=== PATIENT | female | born 1955 | race Caucasian/White ===

== ENCOUNTER 2021-01-30 09:49 | Inpatient (IN) ==
--- NOTE | 2021-01-02 14:26 | PAT Medication Instructions ---
Medication Instructions Date of Service January 02, 2021 Home Medications atorvastatin 10 mg PO HS fluticasone furoate-vilanterol [Breo Ellipta] 1 inh INHALATION QAM ibuprofen [Advil] 400 mg PO QAM levothyroxine 50 mcg PO QAM ASK your surgeon for instructions ibuprofen [Advil] 400 mg PO QAM Take morning of surgery With a small sip of water, OTHERWISE NOTHING TO EAT OR DRINK AFTER MIDNIGHT: fluticasone furoate-vilanterol [Breo Ellipta] 1 inh INHALATION QAM levothyroxine 50 mcg PO QAM Take evening before surgery atorvastatin 10 mg PO HS Other Notes If you have any questions please call us at [phone] or [phone] or [phone] or [phone]
--- NOTE | 2021-01-04 09:42 | Anesthesiology Consultation ---
Date of Service January 04, 2021 Assessment & Plan (1) Encounter for pre-operative examination: - Abnormal preop CXR: notes 1.8 cm nodular density along the left heart border > may be artifactual, and correlation with a chest CT is recommended for further assessment and to exclude underlying pulmonary lesion. Report forwarded to PCP. Awaiting response. - Per assessment on 01/04: Travel screen- Lives in [place]. Works at [employer]. Uses PPE/follows COVID precaution guidelines. No known COVID-19 positive contacts or current COVID-19 related symptoms. Patient scheduled to receive first COVID vaccine 01/04 (second vaccine scheduled for after surgery). Surgeon arranging preop COVID testing (scheduled 01/24). Patient states she does have to work after preop COVID testing but will continue to follow strict COVID precautions. Awaiting results. Chart Review Chart Review: Patient seen in Pre Admission Testing Teaching & Discussion Pre-Anesthesia Teaching/Discussion Notes: Instructed NPO after midnight before surgery,except medications with 15 cc of water. Medication instructions provided according to the PAT guidelines. History Surgery Operation Date: 01/30/21 07:00 Proposed Procedures p Left Total Hip Arthroplasty - Micky Sharma, Height/Weight Height: 5 ft 8 in Weight: 108 kg Allergies Allergy/AdvReac Type Severity Reaction Status Date / Time No Known Allergies Allergy Unverified 01/03/21 15:16 Medications Home Medications Medication Instructions Recorded Confirmed Last Taken atorvastatin 10 mg PO HS 12/20/20 12/20/20 Unknown fluticasone furoate-vilanterol 1 inh INHALATION QAM 12/20/20 12/20/20 Unknown [Breo Ellipta] ibuprofen [Advil] 400 mg PO QAM 12/20/20 12/20/20 Unknown levothyroxine 50 mcg PO QAM 12/20/20 12/20/20 Unknown bupropion HCl 150 mg PO QAM 01/04/21 01/04/21 Unknown Past Medical History Medical History Arthritis Asthma stable Hyperlipidemia Hypothyroidism Migraine hx Obesity Pulmonary embolism 1993, no etiology found, previous on coumadin (since d/c'd), no issues since Exercise / Class Metabolic Activity II 4-5 Yardwork/Stairs/Walk up hill (one flight of stairs (no cp, no sob)) Past Surgical History Surgical History History of cholecystectomy open (2019) History of tonsillectomy Thyroid goiter s/p excision Past Anesthesia History No Hx of Anesthesia Complications and No Family Hx of Anesthesia Complications History of PONV No Hx of PONV and No Hx of Motion Sickness Social History Smoking Status: Current every day smoker Smoking cigarettes per day: 10 cigs/day x 40 years Do You Dip or Chew Tobacco: No Hx Alcohol Use: No Hx Substance Use: No Review of Systems No snoring. Patient denies chest pain, shortness of breath, dyspnea on exertion, fever, chills, cough, wheezing, palpitations. Physical Exam Vital Signs VITALS BP 117/66 P 62 TEMP 98.3 SP02 96%RA RESP 18 PHYSICAL Full neck and c-spine range of motion. Full TMJ range of motion. TMD 3 finger breaths Mallampati Score 2 Dentition: intact Lungs: clear throughout to auscultation Cardiac: regular rate and rhythm, no murmurs noted Spine: normal Carotid arteries: negative bruit Extremities: no edema Testing Laboratory Results PT 9.5 Seconds (9.0-12.0) 01/04/21 10:08 INR 0.9 (0.9-1.1) 01/04/21 10:08 APTT 27.0 Seconds (21.0-31.0) 01/04/21 10:08 Urine Color Dark Yellow 01/04/21 10:08 Urine Appearance Clear (Clear) 01/04/21 10:08 Urine pH 5.0 (4.5-7.5) 01/04/21 10:08 Ur Specific [place] 1.030 (1.000-1.030) 01/04/21 10:08 Urine Protein Negative (Negative) 01/04/21 10:08 Urine Glucose (UA) Negative (Negative) 01/04/21 10:08 Urine Ketones Trace (Negative) H 01/04/21 10:08 Urine Nitrite Negative (Negative) 01/04/21 10:08 Ur Leukocyte Esterase Negative (Negative) 01/04/21 10:08 Blood Type A Positive 01/04/21 10:08 Antibody Screen NEGATIVE 01/04/21 10:08 12/19/20 WBC 7.64 H/H 15.0/46.6 PLATELETS 276 SODIUM 141 POTASSIUM 4.0 CHLORIDE 110 CO2 26 BUN 19.7 CREATININE 1.15 GLUCOSE 98 Electrocardiogram Date: 01/04/21 NSR at 62bpm. Rightward axis. unconfirmed report. Chest X-Ray Date: 01/04/21 FINDINGS: PA and lateral chest radiographs are obtained. No prior studies are available for comparison at the time of dictation. The cardiomediastinal silhouette is unremarkable noting atherosclerotic calcification of the thoracic aorta. Question a 1.8 cm nodular density along the left heart border. There is no airspace consolidation or pleural effusion. Mild scarring/atelectasis is seen at the lung bases. There is no pneumothorax. The skeletal structures are osteopenic. There are healed right-sided rib fractures. IMPRESSION: There is no acute cardiopulmonary abnormality. Question a 1.8 cm nodular density along the left heart border. This may be artifactual, and correlation with a chest CT is recommended for further assessment and to exclude underlying pulmonary lesion.
[2021-01-04 10:49] LABS: Appearance Urine Clear (Clear); Bilirubin Urine Negative (Negative); Blood Urine Negative (Negative); Color Urine Dark Yellow; Glucose Urine UA Negative (Negative); Ketones Urine Trace (Negative); Leukocyte Esterase Urine Negative (Negative); Nitrite Urine Negative (Negative); Protein Urine Negative (Negative); Urobilinogen Urine Negative (Negative)
--- NOTE | 2021-01-04 10:51 | XRay Report ---
TWO VIEW CHEST CLINICAL HISTORY: Preoperative examination. FINDINGS: PA and lateral chest radiographs are obtained. No prior studies are available for compariso n at the time of dictation. The cardiomediastinal silhouette is unremarkable noting atherosclerotic calcification of the thoracic aorta. Question a 1.8 cm nodular density along the left heart border. T here is no airspace consolidation or pleural effusion. Mild scarring/atelectasis is seen at the lung bases. There is no pneumothorax. The skeletal structures are osteopenic. There are healed right-sided rib fractures. IMPRESSION: 1. There is no acute cardiopulmonary abnormality. 2. Question a 1.8 cm nodular density along the left heart border. This may be artifactual, and correl ation with a chest CT is recommended for further assessment and to exclude underlying pulmonary lesio n. ACT 112: Negative or not required by law. Electronically signed by: Ernesto Beck M.D. 01/04/2021 10:50 AM
[2021-01-04 11:05] LABS: INR 0.9 (0.9-1.1); Prothrombin Time 9.5 Seconds (9.0-12.0)
--- NOTE | 2021-01-04 16:18 | Electrocardiogram Report ---
Test Reason : Blood Pressure : / mmHG Vent. Rate : 062 BPM Atrial Rate : 062 BPM P-R Int : 146 ms QRS Dur : 090 ms QT Int : 432 ms P-R-T Axes : 072 093 081 degrees QTc Int : 438 ms Normal sinus rhythm Rightward axis Borderline ECG No previous ECGs available Confirmed by Wilson Pink ([id number]) on 01/04/2021 4:18:25 PM Referred By: Micky Sharma Confirmed By:Wilson Pink
[2021-01-05 08:36] LABS: Estimated Average Glucose 126 mg/dl
--- NOTE | 2021-01-28 09:43 | History & Physical Report ---
Date of Service January 30, 2021 Assessment & Plan (1) Degenerative joint disease of left hip: I have indicated the patient for left total hip replacement. The risks, benefits and complications of surgery were explained to the patient which include but not limited to infection, acute blood loss, DVT/PE, injury to nerves, vessels, bone, soft tissue, arthrofibrosis, chronic pain, failure of the prosthesis, hip dislocation, leg length discrepancy, need for additional surgery, cardiac and pulmonary events and . The patient wished to proceed with surgery and informed consent was obtained at this time. We will plan for Lovenox post-operatively for DVT prophylaxis. Patient has hx for PE. Upon discharge the patient will be discharged home with home health services. Appropriate clearances by PCP were obtained. History of Present Illness Chief Complaint: Left hip pain/DJD Primary Care Provider: Esha Wilson MD The patient is a 65 year old female who presents with complaints of severe left hip pain and DJD. The patient has failed outpatient conservative treatments to this point which included NSAIDs, IA corticosteroid injection, HEP. The patient's pain and limited function have progressed to the point where they severely hinder their activities of daily living and they no longer tolerate exercise programs. They are requesting to proceed with total hip replacement surgery. Allergies Allergy/AdvReac Type Severity Reaction Status Date / Time No Known Allergies Allergy Unverified 01/30/21 10:20 Home Medications Medication Instructions Recorded Confirmed Type atorvastatin 10 mg PO HS 12/20/20 12/20/20 History fluticasone furoate-vilanterol 1 inh INHALATION QAM 12/20/20 12/20/20 History [Breo Ellipta] ibuprofen [Advil] 400 mg PO QAM 12/20/20 12/20/20 History levothyroxine 50 mcg PO QAM 12/20/20 12/20/20 History bupropion HCl 150 mg PO QAM 01/04/21 01/04/21 History Past Med/Surg History Medical History Arthritis Asthma stable Hyperlipidemia Hypothyroidism Migraine hx Obesity Pulmonary embolism 1993, no etiology found, previous on coumadin (since d/c'd), no issues since Surgical History History of cholecystectomy open (2019) History of tonsillectomy Thyroid goiter s/p excision Social History Smoking Status: Current every day smoker Cigarettes Per Day: 10 cigs/day x 40 years; Second Hand Exposure: Yes (BOYFRIEND MORIAH SMOKES); Do You Dip or Chew Tobacco: No; Hx Alcohol Use: No Hx Substance Use: No Preferred Language: Mauritanian Communication Ability: Effective Supervisor Cellars Required: No Beliefs That Will Affect Care: None Current Living Situation: Significant Other Other Information That Helps Us Care for You: No Feels Safe at Home: Yes Safety Concerns: Feels Safe At This Time Assistive Devices: Glasses Review of Systems Review of Systems: All systems reviewed & are unremarkable except as noted in HPI & below Constitutional: as per Subjective / HPI Physical Exam Physical Exam: LLE NVSI +EHL/FHL/TA/GS SILT grossly, +2 DP pulse, compartments soft NT, limited painful ROM of the hip, antalgic gait. Constitutional: WD/WN, vitals as above Eyes: PERRL, conjunctivae normal, anicteric sclerae ENMT: external ear and nose normal, oropharynx normal Neck: trachea midline, no thyromegaly Respiratory: normal respiratory effort, lungs clear to auscultation Cardiovascular: RRR, no murmur, no edema Gastrointestinal (Abdomen): normal bowel sounds, soft, nontender, no hepatosplenomegaly Musculoskeletal: no cyanosis or clubbing, extremities motor strength 5/5 Skin: no rashes, warm and dry Neurologic: patellar DTR's 2+ bilat, sensation intact Psychiatric: A+Ox3, euthymic affect Lymphatic: no cervical or axillary lymphadenopathy Results & Data Results & Data ([facility]) Diagnostic Findings Multiple views of the hip demonstrates severe DJD with complete loss of the joint space. +osteophytes, +sclerosis, +subchondral cysts. Pre Admission Testing Addendum Laboratory Results PT 9.5 Seconds (9.0-12.0) 01/04/21 10:08 INR 0.9 (0.9-1.1) 01/04/21 10:08 APTT 27.0 Seconds (21.0-31.0) 01/04/21 10:08 Hemoglobin A1c 6.0 % (4.5-5.6) H 01/04/21 10:08 Urine Color Dark Yellow 03/10/21 10:08 Urine Appearance Clear (Clear) 01/04/21 10:08 Urine pH 5.0 (4.5-7.5) 01/04/21 10:08 Ur Specific [place] 1.030 (1.000-1.030) 01/04/21 10:08 Urine Protein Negative (Negative) 01/04/21 10:08 Urine Glucose (UA) Negative (Negative) 01/04/21 10:08 Urine Ketones Trace (Negative) H 01/04/21 10:08 Urine Nitrite Negative (Negative) 01/04/21 10:08 Ur Leukocyte Esterase Negative (Negative) 01/04/21 10:08 Blood Type A Positive 01/04/21 10:08 Antibody Screen NEGATIVE 01/04/21 10:08
[~2021-01-30 09:49] MED LIST: ACETAMINOPHEN 500 MG TAB PO SCH; BUPIVACAINE 0.5 % 5 MG/1 ML PF 10ML VIAL ONE; CeleBREX 200 MG CAP PO SCH; FAMOTIDINE 20 MG TAB PO SCH; GABAPENTIN 600 MG DOSE PO SCH; LR 15ML/HR IV SCH; METOCLOPRAMIDE HCL 10 MG TABLET PO SCH; ROPIVACAINE 0.5% HCL/PF 150 MG, BUPIVACAINE 0.75% MPF 20 ML, EPINEPHrine 30MG/30ML (OR ... INSTIL SCH; ceFAZolin 2000MG 2,000 MG/15 ML SYR IV SCH; dexAMETHasone 4 MG TAB PO SCH; oxyCODONE HCL 10 MG TABCR (OxyCONTIN) PO SCH
--- NOTE | 2021-01-30 10:23 | History & Physical Bridge Note ---
Date of Service January 30, 2021 History & Physical Bridge Note I have examined the patient, reviewed the History & Physical and in the interval since the performance of the History & Physical I have noted the following changes of clinical significance: no changes noted
[2021-01-30] MEDS ORDERED: DEXAMETHASONE SOD INJ 4 MG/ML VIAL ONE (11:14)
[2021-01-30] MEDS ORDERED: PROPOFOL IV EMULSION 10 MG/ML 20 ML VIAL IV ONE ×4 (11:14→13:08)
[2021-01-30] MEDS ORDERED: LIDOCAINE HCL 2% 2 ML VIAL/AMP(20MG/ML) INFIL ONE (11:14)
[2021-01-30] MEDS ORDERED: ONDANSETRON INJ 2 MG/ML 2 ML VIAL ONE (11:14)
[2021-01-30] MEDS ORDERED: MIDAZOLAM HCL 1 MG/ML 2ML VIAL ONE ×2 (11:14→13:13)
[2021-01-30] MEDS ORDERED: ATROPINE SULFATE 0.1 MG/ML 10ML SYR IV PRN (11:19)
[2021-01-30] MEDS ORDERED: ONDANSETRON INJ 2 MG/ML 2 ML VIAL IV PRN ×2 (11:19→15:06)
[2021-01-30] MEDS ORDERED: HYDROmorphone INJ 1 MG/ML SYRINGE IV PRN (11:19)
[2021-01-30] MEDS ORDERED: ePHEDrine sulfate 50 MG/ML AMP IV PRN (11:19)
[2021-01-30] MEDS ORDERED: fentaNYL citrate 100 MCG/2 ML VIAL IV PRN (11:19)
[2021-01-30] MEDS ORDERED: ORTHO JOINT ANESTHETIC ONE (11:56)
[2021-01-30] MEDS ORDERED: BACITRACIN INJ 50,000 UNIT VIAL ONE (11:56)
--- NOTE | 2021-01-30 13:38 | Post Operative Brief Note ---
Immediate Post Op Note v1 Date of Surgery January 30, 2021 Pre & Post Diagnosis Operation Date: 01/30/21 11:40 Pre-Op Diagnosis: Osteoarthritis Hip Left Post-Op Diagnosis: Osteoarthritis Hip Left I identified the patient and participated in the time-out.: Yes Procedure Operation Date: 01/30/21 11:40 Actual Procedures p Left Total Hip Arthroplasty(Left) - Micky Sharma DO Surgeon Micky Sharma DO Flatbed Owner Operator Terry Vásquez Estimated Blood Loss 180 Findings Consistent with Post-Op Diagnosis Fluids See anesthesia report Specimens Femoral head Anesthesia Type Spinal MAC Complications none Disposition Disposition: Recovery Room Overlapping Procedure I was present for: the critical portions of procedure. I was immediately available: during the entire case. Back up surgeon: was not required during procedure.
--- NOTE | 2021-01-30 13:40 | Operative Report ---
Post Operative Report Pre & Post Diagnosis Operation Date: 01/30/21 11:40 Pre-Op Diagnosis: Osteoarthritis Hip Left Post-Op Diagnosis: Osteoarthritis Hip Left I identified the patient and participated in the time-out.: Yes Procedure Operation Date: 01/30/21 11:40 Actual Procedures p Left Total Hip Arthroplasty(Left) - Micky Sharma DO Surgeon Micky Sharma DO Temporary Office Assistant Terry Vásquez Estimated Blood Loss 180 Findings Consistent with Post-Op Diagnosis Fluids See anesthesia report Specimens Femoral head Anesthesia Type Spinal MAC Disposition Disposition: Recovery Room Indications The patient is a 65-year-old female who presents with severe progressive left hip DJD who has failed outpatient conservative treatments. I indicated the patient for a total hip replacement and the risks and benefits were explained in detail which included but not limited to infection, bleeding, blood clot, damage to surrounding bone, nerves, vessels, soft tissue, hip dislocation, failure of the prosthesis, leg length discrepancy, need for additional surgery and . The patient agreed to proceed with replacement of the hip and informed consent was obtained. Appropriate clearances were obtained. Description of Procedure COMPONENTS USED: Selena [employer] hip system: Acetabulum size 52 osteo-ti-G7, femur size 11 extended offset, femoral head 36-3.5, liner 52x36, acetabular screw 30 mm x 1. Following induction of adequate spinal anesthesia, the patient was transferred to the OR table and placed in lateral decubitus position with right hip down. The left hip was prepped and draped in the typical sterile fashion. A timeout was performed, patient identified and site jabari confirmed. Appropriate antibiotics were given. A standard posterolateral/Cole-Langenbeck incision was made. Subcutaneous tissue was sharply dissected. Electrocautery was utilized for hemostasis. The fascia was incised throughout the length of the wound and retracted with the Charnley retractor. The bursa was taken down and the short external rotators were identified. The piriformis was tagged with #1 Vicryl. The short external rotators and capsule were divided from the posterior aspect of the femur using electrocautery. The posterior capsule was tagged with #1 Vicryl. Both external rotators and posterior capsule were swept posterior and protected, along with protecting the sciatic nerve. The hip was dislocated by flexion and internally rotation in a controlled manner and exposure of the femoral neck was gained with an old-style Hohmann and a blunt cobra retractor. A femoral cutting guide was utilized for making the appropriate level femoral neck cut with reciprocating saw. The femoral head was removed, measured and reserved on the back table. Next, attention was turned to the acetabulum. A posterior and anterior offset retractor was placed to gain adequate exposure. Acetabular labrum as well as posterior capsule elements were removed using electrocautery and forceps. Fovea centralis was cleared of all soft tissue. Sequential reaming was performed starting at 44 mm and carried up to a 51 mm and decision was made to proceed with impaction of a 52 mm G7 Osteo-Ti cup. This was impacted and held using a single 30 mm acetabular screw. The trial acetabular liner was placed at this time. Next, attention was turned to the proximal femur where a Bovie and pickup was used to further clear short external rotators from their insertion on the femur. Box osteotome and canal finder was used to gain access to the femoral canal and the lateral reamer on power was used to further open the proximal lateral canal. Sequentially rasping was carried up to a 11 which gave good fit and fill of the proximal femur. A trial reduction was carried out with a extended offset femoral neck component a 36-3.5 mm femoral head. The trial reduction was stable in all degrees of rotation with no [id number] impingement. The hip was dislocated, trial components were removed and access to the acetabulum was re-established. The trial liner was removed and the cup was irrigated to ensure all debris was removed. The final acetabular liner was inserted and properly seated in the cup. Access to the femur was once more gained and the size 11 femoral stem with extended offset was impacted into position. The hip was once more assessed with the 36-3.5 mm femoral head. Stability was accessed and found to be excellent with equal leg lengths. The hip was dislocated for the last time and the final 36-3.5 femoral head was impacted in place and the hip was reduced. Range of motion was checked once again and found to be stable. A Betadine soak was performed. After 3 minutes, the hip was once more irrigated with copious sterile saline solution with bacitracin. The loc-incisional soft tissue was injected utilizing [place] ortho mix which includes a combination of Ropivicaine 0.5% 150mg, Bupivicaine 0.5%/Epinephrine 1:200,000 30ml, Toradol 30mg, Dexamethasone 4mg, Ketamine 10mg, Clonidine 100mcg and NSS 30ml Orthomix solution. The piriformis, external rotators and capsule were repaired to the greater trochanter through bone tunnels using #5 FiberWire. The fascia was closed using #1 Vicryl, subcutaneous tissue was closed using 2-0 Vicryl, and skin was closed with bria and a sterile dry dressing was applied which inc luded godfrey incisional VAC. The patient tolerated the procedure well and was transported to PACU in stable condition. Due to the complex nature of the procedure, the entire surgery was performed with the operational assistance of Terry Vásquez PA-C. The pediatric dental assistant, under direct supervision, was involved in the actual performance of all aspects of the surgical procedure including patient positioning, hemostasis, tissue retraction, instrument management and wound closure. I attest to the content of the Intraoperative Record and any orders documented therein. Any exceptions are noted below.
--- NOTE | 2021-01-30 14:37 | Anesthesiology Progress Note ---
Date of Service January 30, 2021 Anesthesia Post Procedure Vital Signs Vital Signs: Temp Pulse Pulse Resp BP BP Pulse Ox 01/30/21 14:30 58 L 18 106/66 95 01/30/21 14:20 56 L 14 102/59 L 98 01/30/21 14:10 57 L 17 103/55 L 96 01/30/21 14:04 36.9 C 67 16 112/48 L 97 01/30/21 10:33 36.4 C L 72 20 166/89 H 96 Pain Intensity Left Hip: Pain Intensity: 0 Transfer of Care Handoff Completed per policy Notes Mental Status: alert / awake / arousable Patient Amnestic to Procedure: Yes Nausea / Vomiting: adequately controlled Pain: adequately controlled Airway Patency, RR, SpO2: stable & adequate BP & HR: stable & adequate Hydration State: stable & adequate Neuraxial Anesthesia: was administered and sensory block is resolving Anesthetic Complications: no major complications apparent and Pt Satisfied with anesthetic care
--- NOTE | 2021-01-30 14:52 | XRay Report ---
XR hip 1V LT w pelvis HISTORY: 65 years-old Female IN PACU - A/P PELVIS and LATERAL HIP left hip total joint arthroplasty COMPARISON: None TECHNIQUE: AP view of the pelvis with crosstable lateral view of the left hip FINDINGS: Moderate right hip osteoarthritis. Left hip total joint arthroplasty. Satisfactory alignment with exp ected postsurgical soft tissue swelling and deep tissue air. No acute fracture or retained foreign cirilo dy identified. Overlying skin bria. IMPRESSION: Left hip total joint arthroplasty with expected postoperative changes. ACT 112: Negative or not required by law. The above report was generated using voice recognition software. It may contain grammatical, syntax o r spelling errors. Electronically signed by: Leo Braxton M.D. 01/30/2021 2:51 PM
[2021-01-30] MEDS ORDERED: bisacodyL 10 MG SUPP PR PRN (15:06)
[2021-01-30] MEDS ORDERED: NALOXONE HCL 0.4 MG/1 ML VIAL/CARP IV PRN (15:06)
[2021-01-30] MEDS ORDERED: MAGNESIUM HYDROXIDE SUSP 30 ML UDC PO PRN (15:06)
[2021-01-30] MEDS ORDERED: diphenhydrAMINE Capsule 25 MG CAP PO PRN (15:06)
[2021-01-30] MEDS ORDERED: HYDROmorphone INJ 0.5 MG/0.5 ML SYR IV PRN (15:06)
[2021-01-30] MEDS ORDERED: ceFAZolin 2000MG 2,000 MG/15 ML SYR IV SCH (15:06)
[2021-01-30] MEDS ORDERED: METOCLOPRAMIDE HCL INJ 5 MG/ML 2 ML VIAL IV PRN (15:06)
[2021-01-30] MEDS: SODIUM CHLORIDE 0.9% 1000ML 1,000 ML IV SCH (17:23)
[2021-01-30] MEDS: ACETAMINOPHEN 500 MG TAB PO SCH ×2 (17:23→22:42)
[2021-01-30] MEDS: oxyCODONE HCL IR 5 MG TAB (IMMEDIATE RELEASE) PO PRN (20:12)
[2021-01-30] MEDS: ceFAZolin 3,000 MG in DEXTROSE 5% 50 ML IV SCH (20:12)
[2021-01-30] MEDS: DOCUSATE SODIUM 100 MG CAP PO SCH (20:12)
--- NOTE | 2021-01-30 20:43 | Orthopedic Progress Note ---
Date of Service January 30, 2021 Assessment & Plan (1) Degenerative joint disease of left hip: s/p L RASHAWN -ancef x 24 -DVT ppx: SCDs, TEDs, Lovenox daily -WBAT LLE -PT/OT -PO XR demonstrates a well aligned well fixed prothesis without fracture/dislocation -am labs -DC planning Admission and Anticipated Discharge Date Admission Date: January 30, 2021 Subjective Post Operative Progress Note Patient seen sitting up in bed, comfortable, denies complaints, pain well controlled, no acute issues. Review of Systems Review of Systems: All systems reviewed & are unremarkable except as noted in HPI & below Constitutional: as per Subjective / HPI Physical Exam Physical Exam: LLE NVSI +EHL/FHL/TA/GS SILT grossly, +2 DP pulse, compartments soft NT, dressing cdi. Constitutional: WD/WN, vitals as above Results & Data ([facility]) Vital Signs (Past 12 Hours) Vital Signs Temp Pulse Pulse Resp BP BP Pulse Ox 01/30/21 20:17 36.6 C 74 18 130/75 95 01/30/21 18:14 36.7 C 73 17 108/65 95 01/30/21 15:59 36.5 C 65 17 113/71 97 01/30/21 15:35 36.8 C 60 18 112/73 97 01/30/21 14:55 36.4 C L 62 18 112/73 95 01/30/21 14:45 58 L 19 108/69 96 01/30/21 14:40 36.7 C 58 L 14 110/64 96 01/30/21 14:30 58 L 18 106/66 95 01/30/21 14:20 56 L 14 102/59 L 98 01/30/21 14:10 57 L 17 103/55 L 96 01/30/21 14:04 36.9 C 67 16 112/48 L 97 01/30/21 10:33 36.4 C L 72 20 166/89 H 96
[2021-01-30] MEDS ORDERED: ATORVASTATIN 10 MG TAB PO SCH (21:00)
[2021-01-30] MEDS ORDERED: SENNA 8.6 MG TAB PO SCH (21:00)
[2021-01-31] MEDS: oxyCODONE HCL IR 5 MG TAB (IMMEDIATE RELEASE) PO PRN ×3 (02:50→16:19)
[2021-01-31] MEDS: SODIUM CHLORIDE 0.9% 1000ML 1,000 ML IV SCH (03:57)
[2021-01-31] MEDS: ceFAZolin 3,000 MG in DEXTROSE 5% 50 ML IV SCH (03:58)
[2021-01-31] MEDS: ACETAMINOPHEN 500 MG TAB PO SCH ×2 (05:38→14:38)
[2021-01-31 06:02] LABS: Hematocrit (blood only) 36.3 % (37-47); Immature Granulocytes # (auto) 0.03 K/uL (0.00-0.02); Immature Granulocytes % (auto) 0.2 %; Lymphocytes # (auto) 0.82 K/uL (1.2-3.4); Lymphocytes % (auto) 5.4 %; Mean Corpuscular Hgb Conc 33.1 g/dL (32-36); Mean Corpuscular Volume 90.8 fL (80-100); Mean Platelet Volume 11.4 fL (7.4-10.4); Monocytes # (auto) 0.71 K/uL (0.11-0.59); Monocytes % (auto) 4.7 %; Neutrophils # (auto) 13.54 K/uL (1.4-6.5); Neutrophils % (auto) 89.7 %; Platelet Count 235 K/uL (130-400); RDW Coefficient of Variation 13.3 % (11.5-14.5); RDW Standard Deviation 44.1 fL (36.4-46.3)
[2021-01-31] MEDS ORDERED: LEVOTHYROXINE SODIUM 50 MCG TABLET PO SCH (06:30)
[2021-01-31 06:37] LABS: Calcium 8.6 mg/dl (8.5-10.1); Creatinine Clr Calc Pharmacy 64.1 ml/min; Est GFR (African American) 58.9; Est GFR (Non-African American) 50.8; Potassium 3.8 mmol/L (3.5-5.1)
[2021-01-31] MEDS: DOCUSATE SODIUM 100 MG CAP PO SCH (08:29)
[2021-01-31] MEDS ORDERED: buPROPion XL 150 MG TABCR PO SCH (09:00)
[2021-01-31] MEDS ORDERED: FLUTICASONE/VILANTEROL 200/25MCG 14 PUFFS/INHALER INH SCH (09:00)
[2021-01-31] MEDS ORDERED: MULTIVITAMIN TAB PO SCH (09:00)
--- NOTE | 2021-01-31 12:40 | Orthopedic Progress Note ---
Date of Service January 31, 2021 Assessment & Plan (1) Degenerative joint disease of left hip: s/p L RASHAWN POD#1 -ancef x 24 -DVT ppx: SCDs, TEDs, Lovenox daily -WBAT LLE -PT/OT -PO XR demonstrates a well aligned well fixed prothesis without fracture/dislocation -am labs - as above, hgb 12.0 -DC planning - home with OP PT Admission and Anticipated Discharge Date Admission Date: January 30, 2021 Subjective Post Operative Progress Note Patient seen sitting up in bed, comfortable, denies complaints, did have some nausea overnight but improved now, pain well controlled, no acute issues. Denies F/C/N/V/SOB/CP. Review of Systems Review of Systems: All systems reviewed & are unremarkable except as noted in HPI & below Constitutional: as per Subjective / HPI Physical Exam Physical Exam: LLE NVSI +EHL/FHL/TA/GS SILT grossly, +2 DP pulse, compartments soft NT, dressing cdi. Constitutional: WD/WN, vitals as above Results & Data ([facility]) Vital Signs (Past 12 Hours) Vital Signs Temp Pulse Resp BP Pulse Ox 01/31/21 12:31 36.6 C 62 16 122/71 91 01/31/21 07:34 36.7 C 65 16 100/60 93 01/31/21 02:43 36.5 C 66 15 114/73 92 Laboratory Results 01/31/21 01/31/21 Range/Units 05:24 05:24 WBC 15.10 H (4.8-10.8) K/uL RBC 4.00 L (4.2-5.4) M/uL Hgb 12.0 (12.0-16.0) g/dL Hct 36.3 L (37-47) % MCV 90.8 (80-100) fL MCH 30.0 (25-34) pg MCHC 33.1 (32-36) g/dL RDW Std Deviation 44.1 (36.4-46.3) fL RDW Coeff of Mariangel 13.3 (11.5-14.5) % Plt Count 235 (130-400) K/uL MPV 11.4 H (7.4-10.4) fL Immature Gran % (Auto) 0.2 % Neut % (Auto) 89.7 % Lymph % (Auto) 5.4 % [place] % (Auto) 4.7 % Eos % (Auto) 0.0 % Baso % (Auto) 0.0 % Neut # (Auto) 13.54 H (1.4-6.5) K/uL Lymph # (Auto) 0.82 L (1.2-3.4) K/uL [place] # (Auto) 0.71 H (0.11-0.59) K/uL Eos # (Auto) 0.00 (0-0.5) K/uL Baso # (Auto) 0.00 (0-0.2) K/uL Immature Gran # (Auto) 0.03 H (0.00-0.02) K/uL Sodium 138 (136-145) mmol/L Potassium 3.8 (3.5-5.1) mmol/L Chloride 109 H (98-107) mmol/L Carbon Dioxide 24 (21-32) mmol/L Anion Gap 5.0 (3-11) BUN 24 H (7-18) mg/dl Creatinine 1.14 (0.6-1.2) mg/dl Est Cr Clr Drug Dosing 64.1 ml/min Est GFR ( Amer) 58.9 Est GFR (Non-Af Amer) 50.8 BUN/Creatinine Ratio 21.0 H (10-20) Glucose 160 H (70-99) mg/dl Calcium 8.6 (8.5-10.1) mg/dl
--- NOTE | 2021-01-31 20:53 | Discharge Summary ---
Date of Service January 31, 2021 Admission HPI Per Admitting Provider The patient is a 65 year old female who presents with complaints of severe left hip pain and DJD. The patient has failed outpatient conservative treatments to this point which included NSAIDs, IA corticosteroid injection, HEP. The patient's pain and limited function have progressed to the point where they severely hinder their activities of daily living and they no longer tolerate exercise programs. They are requesting to proceed with total hip replacement surgery. Principal Diagnosis Left total hip replacement Discharge Exam LLE NVSI +EHL/FHL/TA/GS SILT grossly, +2 DP pulse, compartments soft NT, dressing cdi. Constitutional WD/WN, vitals as above Discharge Data Allergies Allergy/AdvReac Type Severity Reaction Status Date / Time No Known Allergies Allergy Unverified 01/30/21 10:20 Procedures Performed Operation Date: 01/30/21 11:40 Actual Procedures p Left Total Hip Arthroplasty(Left) - Micky Sharma DO Hospital Course (1) Degenerative joint disease of left hip: The patient is a 65 -year-old female who presents with long standing history of severe left hip DJD and failed outpatient conservative treatments. The patient's symptoms have progressed to the point where it has been difficult to perform even normal activities of daily living. I indicated the patient for a left total hip arthroplasty, the risks, benefits and complications of the procedure include but not limited to infection, bleeding, damage to bone, nerves, vessels, surrounding soft tissue, may develop blood clots, loss of function, leg length discrepancy, dislocation, failure of the components, loosening of the components, the need for additional surgery and . The patient wished to proceed with surgery at this time and informed consent was obtained. Hospital Course: On 01/30/21 the patient was taken to the operating room, adequate anesthesia administered and underwent a left total hip arthroplasty. The patient tolerated the procedure well and was taken to the PACU in stable condition. Post- operatively the patient was started on a DVT ppx medication and given appropriate IV antibiotics. Consults were placed to physical therapy, occupational therapy and case management. On POD#1, the patient did well overnight and their pain was well controlled. Labs were drawn and the Hgb was 12.0. The patient progressed well with PT. Dressings were changed at this time and the incision was clean, dry and intact. The patients hospital stay was relatively uneventful and they were deemed stable by the orthopedic team and consultants to be discharged home with outpatient PT on 01/31/21. Discharge Instructions: Upon discharge the patient may weight bear as tolerates through their operative extremity. They were instructed to keep the incision clean and dry at all times. The patient may shower but should not submerge the incision, avoid bathing, pools and hot tubs. The patient was given a script for pain medication and should take as instructed. The patient was given a script for DVT ppx Lovenox daily and should take as directed. The patient was instructed to not drive or travel for long distances until cleared to do so. If the patient develops any symptoms of fevers, chills, nausea, vomiting, increased redness, swelling, pain or drainage from the surgical site, they should notify the office and/or proceed to the nearest emergency room. The patient should follow up in 10-14 days after surgery for their routine post-operative follow-up appointment and should call the office, to confirm the date and time. s/p L RASHAWN POD#1 -ancef x 24 -DVT ppx: SCDs, TEDs, Lovenox daily -WBAT LLE -PT/OT -PO XR demonstrates a well aligned well fixed prothesis without fracture/dislocation -am labs - as above, hgb 12.0 -DC planning - home with OP PT Total Time Total Time Spent Total Time Spent (In Minutes): 30 Discharge Plan Discharge Items Patient Disposition: Home - Self-Care Reason For Visit: Osteoarthritis Hip Left Discharge Diagnosis: s/p Left total hip replacement Condition on Discharge: Good Activity: Per Instructions section Lifting: Wait until after follow-up appointment Bathing: Keep incision dry Bathing Comment: No bathing, pools or hot tubs. Sexual Activity: Wait until after follow-up appointment Exercise/Sports: Wait until after follow-up appointment Driving/Machine Use: No driving. Weightbearing: Full weightbearing Non-emergency contact: Primary Care Provider and Surgeon Call non-emergency contact if: you have any medication questions, your symptoms worsen, your pain is not controlled, your pain is worsening, your pain is un usual for you, your pain is concerning for you, you have a fever, your temperature is above 101, your wound has increased redness, your wound has increased drainage and your wound pain has increased Follow-up/Referrals: Esha Wilson MD [Primary Care Provider] - Diet: Regular Addtl Attending Provider Instructions: ACTIVITY RECOMMENDATIONS: SELF CARE INSTRUCTIONS AFTER TOTAL HIP REPLACEMENT Until the incision and soft tissues around your hip have healed, there is a possibility that the hip prosthesis could dislocate. A. Observe the following precautions to prevent dislocation: 1. Don't bend your hip greater than 90 degrees. 2. Avoid crossing your legs or ankles while standing or lying. 3. Sit with your feet placed 6 inches apart. 4. When sitting, keep your knees below your hips. Sit on a firm surface, avoid deep, soft chairs and couches. Use an elevated toilet seat in the bathroom. 5. Don't bend over at the waist. Use a long handled shoehorn and a sock aid to help you put on your shoes and socks. A boiling house oiler can help you milk pickup truck driver objects that are too high or too low to reach. 6. Keep car riding to a minimum for at least one month after surgery. B. Your balance may be shaky for a while. Use crutches or a walker until directed by your doctor. C. Use hand rails when walking on stairs. D. Wear low heeled shoes with non-slip soles. E. Be sure that your floors are free of things that could trip you - throw rugs, electrical cords, small objects. Avoid wet and waxed floors, especially with crutches and canes. F. Try to walk several times a day with rest periods between. G. Continue with all the exercises taught to you in the hospital. Again, make walking a part of your daily routine. SPECIAL CARE INSTRUCTIONS: VERY IMPORTANT TO READ AND REVIEW A. You may still be at risk for phlebitis and blood clots. 1. Wear surgical stockings (WILFRED hose) for 2 weeks after surgery to improve circulation and reduce swelling. 2. Take Lovenox 40mg daily for 4 weeks or as directed by your doctor. This is your blood thinner. 3. High risk patients may be prescribed a stronger blood thinner if necessary. 4. If you are on Coumadin normally, your family doctor/needle loom tender should monitor your blood work. Expect a phone call the day of or the day after bloodwork is drawn to adjust your dosage. B. You must take antibiotics before having dental work, bladder, bowel and other surgery. Your doctor will provide you with a permanent card to carry describing precautions. C. Call [facility] if you have a fever, redness or swelling around the incision, cloudy drainage from incision, or sudden increase in pain in your hip, not relieved by your regular pain medication. D. Please call the office at if you have any concerns or questions about your operation or recovery. * YOU MAY SHOWER, NO TUB BATHS UNTIL CLEARED BY YOUR DOCTOR. * WEAR WILFRED HOSE 20 HOURS PER DAY FOR 2 WEEKS. * YOU SHOULD USE A WALKER OR CRUTCHES FOR 2-4 WEEKS. THIS WILL HELP PREVENT STRAIN ON YOUR HIP MUSCLE AND ALLOW IT TO HEAL PROPERLY. YOU MAY WEAN TO A CANE TOLERATED. * MOST PATIENTS WILL HAVE HOME NURSING FOR THERAPY. IF YOU DECIDE TO DO OUTPATIENT PHYSICAL THERAPY, PLEASE SCHEDULE THIS 3 TIMES PER WEEK. *SHEKHAR incisional vac is a special dressing covering your incision. This dressing provides a sterile dry environment while you are healing. The dressing is to be left in place for 7 days post-operatively. Your home nurse or surgeon will remove. If you develop any redness or blisters or have any questions notify your surgeon immediately. FOLLOW UP VISIT: If appointment is not already scheduled: Please call [facility] to make a follow-up appointment for 2 weeks after your surgery at . Pending Studies at Discharge: No Stand-Alone Forms: My [facility], Opioid Pain Management, Smoking Cessation Medications and DC Order Prescriptions: New enoxaparin 40 mg/0.4 mL Syringe 40 mg subcut Q24H Qty: 28 RF: 0 acetaminophen 500 mg Tablet 1,000 mg PO Q8 PRN (Reason: fever or pain) Qty: 90 RF: 0 oxycodone 5 mg Tablet 5 mg PO Q6H MDD 4 PRN (Reason: pain) Qty: 30 RF: 0 sennosides [Senokot] 8.6 mg Tablet 17.2 mg PO HS PRN (Reason: constipation) Qty: 28 RF: 0 Continued atorvastatin 10 mg Tablet 10 mg PO HS RF: 0 levothyroxine 50 mcg Capsule 50 mcg PO QAM RF: 0 Breo Ellipta 200-25 mcg/dose Blister With Device 1 inh INHALATION QAM RF: 0 bupropion HCl 150 mg Tablet Extended Release 24 Hr 150 mg PO QAM RF: 0 Discontinued ibuprofen [Advil] 200 mg Tablet 400 mg PO QAM RF: 0 Tylenol Extra Strength 500 mg 2 tab PO DAILY PRN (Reason: Pain) RF: 0 Discharge Orders: Discharge Order (Routine); Ordered 01/31/21 Ordered By: Micky Fernandez/Other Patient Handouts: Exercise to Manage Your Blood Sugar, 5 Steps for Eating Healthier, A1C Admission Data Admit Date/Time: 01/30/21 14:16 Attending Provider: Micky Sharma Admit Provider: Micky Sharma Primary Care Provider: Esha Wilson Other Interventions: Discharge Summary Assessment (RN) Last Done: 01/31/21 16:25
[2021-01-31] MEDS ORDERED: ENOXAPARIN INJ 40 MG/0.4 ML SYR SQ SCH (21:00)
== END 2021-01-31 17:00 | disposition home or self-care (01) | DRG 470 ==
LOC: ASU 09:49 → 3E 09:49 → OBSVTOIN 14:16